=== PATIENT | female | born 1950 | race Caucasian/White ===

== ENCOUNTER 2024-04-29 22:17 | Emergency (ER) | payer OTHER, SELFPAY ==
--- NOTE | 2024-04-29 23:53 | ED.GENMED ---
History of Present Illness
General
Chief Complaint: Musculo-Skeletal Complaint
Source: patient and spouse (Spouse confirms the trip was to [place])
Time Seen by Provider: 04/29/24 22:55
History of Present Illness
History of Present Illness:
74-year-old female who has a history of hysterectomy and chronic right lower extremity lymphedema presents after she had pain in the right lower extremity. She recently traveled just down to [place] and her doctor wanted her ruled out for DVT.
The patient also states she had a little bit of pain to left leg but that really is gone. Pain is mostly in the right anterior lower extremity. No chest pain or shortness of breath. No back pain. No fevers. No numbness or tingling. She also
admits that she recently doubled her dose of Crestor.
Past History
Past History
ED Past Medical History: Hypercholesterolemia and Other (Chronic right lower extremity lymphedema)
ED Past Surgical History: Gynecological
Phy Exam
Physical Exam
Physical Exam:
CONSTITUTIONAL Vital signs reviewed, Patient alert and oriented to person, place and time. Well-appearing
HEAD atraumatic, normocephalic.
EYES eyelids normal to inspection, Extraocular muscles intact, Conjunctiva normal, Sclera normal.
NECK normal range of motion, Trachea midline, no jugular venous distention.
RESP no respiratory distress
BACK No obvious deformities
UPPER EXTREMITY Gross Range of motion normal, gross motor strength normal
LOWER EXTREMITY Gross range of motion normal, Gross motor strength normal. Lymphedema noted to the right lower extremity when compared to left. Patient states it is at baseline. Right lower extremity without any redness or swelling otherwise.
There is normal dorsalis pedis and posterior tibial pulses. Normal motor function. No palpable cords.
NEURO Speech normal, No focal motor deficits include, Kelsie coma scale 15, Memory normal, Cranial Nerves intact to screening exam.
SKIN Skin warm, dry, and normal in color.
PSYCHIATRIC Patient oriented to person place and time, Normal affect.
Course
Orders/Labs/Results
Orders:
Orders
04/29/24 22:31
US Periph Venous LOWER Ext [place] Urgent
Reason For Exam: pain, recent travel
Vital Signs
Initial and Last Documented VS:
Initial Vital Signs
Temp
97.9 F
04/29/24 22:22
Last Documented Vital Signs
Temp
97.9 F
04/29/24 22:22
MDM/Problems Addressed
Differential Diagnosis Includes:
DVT, lumbar radiculopathy, Thornton's cyst, arterial insufficiency
MDM/Problems Addressed:
Chronic lymphedema, acute leg pain, Thornton's cyst bilaterally. Acute hypertension
*Radiology
Radiology exam reviewed: radiology read reviewed
*Critical Care Note
Total Time (30-74mins, 75-104mins- exclusive of procedures): Not Applicable
Data Reviewed
Source: patient and spouse
Further Testing Considered But Not Given:
Considered plain film imaging but no trauma noted
Patient Management
Escalation/DeEscalation of care consider admission/obs:
Normal pulses. Negative DVT. Could be related to recent increase in Crestor. Patient will follow-up with PCP. Patient states her blood pressure is typically normal. Not concerned but recommended close follow-up for repeat BP
ED Attending Note
-
Portions of this chart may have been created with voice recognition software.� Occasional wrong word or��sound alike� substitutions may have occurred due to the inherent limitations of voice recognition software.
Discharge Plan
Departure
Patient Disposition: Home (Routine Discharge)
Date of Disposition: 04/29/24
Time of Disposition: 23:53
Patient with high blood pressure during this ER visit?: Yes
Discharge Problem:
Leg pain, Thornton's cyst, Lymphedema
Instructions: BLOOD PRESSURE
Referrals:
UNKNOWN - PT DOES,NOT KNOW [Family Provider] -
Activity Restrictions/Additional Instructions:
Leg pain
Please see your doctor in the next 3 to 5 days for follow-up and reevaluation. If symptoms persist, may be important to scale back your dose of Crestor. If that does not work, further workup may be necessary. Return immediately for numbness,
tingling, worsening pain, discoloration of the leg or any other concerns.
Interventions
Interventions:
*Risk Screen - Suicide Last Done: 04/29/24 22:22
*General Assessment Last Done: 04/29/24 22:22
*Neglect/Abuse Screening Last Done: 04/29/24 22:22
*ED COVID-19 Vaccine History Last Done: 04/29/24 22:22
ED-Musculoskeletal Assessment Last Done: 04/29/24 23:43
Discharge Date and Time
Print Language: FILIPINO
[2024-04-29 23:54] VITALS: BP 155/64
== END 2024-04-30 00:03 | disposition home or self-care (01) ==
LOC: EMR 22:17
PROVIDERS: EMERGENCY PHYSICIAN Emergency Medicine
DX: M71.21 Synovial cyst of popliteal space [Baker], right knee (principal); M71.22 Synovial cyst of popliteal space [Baker], left knee; I89.0 Lymphedema, not elsewhere classified; I10 Essential (primary) hypertension; E78.00 Pure hypercholesterolemia, unspecified; Z90.710 Acquired absence of both cervix and uterus
CPT/HCPCS: 99284; 93970